=== PATIENT | female | born 1995 ===

== ENCOUNTER 2023-08-23 17:30 | Inpatient (IN) | payer OTHER ==
[2023-08-23] MEDS ORDERED: DEXTROSE 5%-LACTATED RINGERS 1,000 ML IV SCH (18:45)
[2023-08-23 18:59] VITALS: BMI 23.8
[2023-08-23 19:29] LABS: BASO % 0.4 % (0-2.0); EOS % 1.1 % (0-4.5); LYMPH % 18.3 % (8-40); MCHC 34.2 g/dl (32.0-36.0); MEAN CELL VOLUME 87.7 fl (80-96); MEAN PLT VOLUME 9.2 fl (7.5-11.1); MONO % 7.4 % (3.8-10.2); NEUT % 72.8 % (42.8-82.8); PLATELET COUNT 250 10^3/uL (134-434); RDW 14.1 % (11.6-15.6); WHITE BLOOD COUNT 10.4 K/mm3 (4.0-10.0)
[2023-08-23 19:35] LABS: INR 1.03 (0.83-1.09); PROTHROMBIN TIME (PATIENT) 11.9 SEC (9.7-13.0)
[2023-08-23 19:38] LABS: ACTIVATED PTT 29.1 SECONDS (25.2-36.5)
[2023-08-23 19:50] LABS: POTASSIUM 3.8 mmol/L (3.5-5.1)
[2023-08-23 19:52] LABS: ALBUMIN 2.8 g/dl (3.4-5.0); CALCIUM 9.1 mg/dL (8.5-10.1)
[2023-08-23 19:53] LABS: BLOOD UREA NITROGEN 9.6 mg/dL (7-18)
[2023-08-23 19:56] LABS: CREATININE 0.5 mg/dL (0.55-1.3)
[2023-08-23 19:57] LABS: BILIRUBIN,TOTAL 0.4 mg/dL (0.2-1); TOT PROT 7.1 g/dl (6.4-8.2)
[2023-08-23] MEDS: MISOPROSTOL 100 MCG TABLET PV SCH (20:25)
[2023-08-23 21:00] LABS: PH,URINE 5.5 (5.0-8.0); URINE APPEARANCE CLEAR; URINE BILIRUBIN NEGATIVE (NEGATIVE); URINE COLOR YELLOW; URINE GLUCOSE (UA) NEGATIVE (NEGATIVE); URINE KETONE NEGATIVE (NEGATIVE); URINE LEUK ESTERASE NEGATIVE (NEGATIVE); URINE NITRITE NEGATIVE (NEGATIVE); URINE PROTEIN NEGATIVE (NEGATIVE); URINE UROBILINOGEN 0.2 mg/dL (0.2-1.0)
[2023-08-23] MEDS ORDERED: morphine SULFATE 4 MG/ML VIAL IVPB ONE (23:53)
[2023-08-24] MEDS ORDERED: morphine SULFATE 4 MG/ML VIAL ONE (00:11)
[2023-08-24] MEDS: MISOPROSTOL 100 MCG TABLET PV SCH ×3 (02:14→07:16)
[2023-08-24] MEDS ORDERED: OXYTOCIN 20 UNITS in 0.9% NS 20 UNIT/1,000 ML INFUS.BAG IV ONE ×2 (02:27→12:54)
[2023-08-24] MEDS ORDERED: LIDOCAINE HCL 1% PRESERVATIVE FREE - 30ML VIAL ONE (02:28)
[2023-08-24] MEDS ORDERED: OXYTOCIN 30 UNITS in 0.9% NS 30 UNIT/500 ML INFUS.BAG IVPB SCH (04:00)
[2023-08-24 06:28] LABS: CORD BASE EXCESS -7.2 mmol/L (0-2); CORD HCO3 22.3 mmHg (20-29); CORD PCO2 60.8 mmHg (30-78); CORD pH 7.182 (7.14-7.44)
[2023-08-24 06:31] LABS: CORD BASE EXCESS -5.2 mmol/L (0-2); CORD HCO3 22.7 mmHg (20-29); CORD PCO2 52.4 mmHg (30-78); CORD pH 7.254 (7.14-7.44)
[2023-08-24] MEDS ORDERED: ACETAMINOPHEN 325 MG TABLET (FP) PO PRN (06:45)
[2023-08-24] MEDS ORDERED: WITCH HAZEL 50% (TUCKS) 40 PAD/JAR PAD TP PRN (06:45)
[2023-08-24] MEDS ORDERED: BENZOCAINE 28 GM HEMORRHOIDAL OINTMENT TP PRN (06:45)
[2023-08-24] MEDS ORDERED: OXYTOCIN 20 UNITS in 0.9% NS 20 UNIT/1,000 ML INFUS.BAG IV SCH (06:45)
[2023-08-24] MEDS: IBUPROFEN 600 MG TABLET (FP) PO PRN ×2 (07:52→20:23)
[2023-08-24] MEDS: FERROUS SO4 325 MG TABLET (FP) PO SCH ×3 (07:52→17:59)
[2023-08-24] MEDS ORDERED: FERROUS SO4 325 MG TABLET (FP) ONE (11:45)
[2023-08-24] MEDS ORDERED: PRENATAL VITAMINS W/ FOLIC ACID TABLET (FP) PO ONE (11:46)
[2023-08-24] MEDS: PRENATAL VITAMINS W/ FOLIC ACID TABLET (FP) PO SCH (11:48)
[2023-08-24 11:49] LABS: BASO % 0.1 % (0-2.0); HEMATOCRIT 25.1 % (32.4-45.2); HEMOGLOBIN 8.4 GM/dL (10.7-15.3); LYMPH % 7.7 % (8-40); MCH 29.5 pg (25.7-33.7); MCHC 33.4 g/dl (32.0-36.0); MEAN CELL VOLUME 88.3 fl (80-96); MEAN PLT VOLUME 8.8 fl (7.5-11.1); MONO % 6.6 % (3.8-10.2); NEUT % 85.6 % (42.8-82.8); PLATELET COUNT 253 10^3/uL (134-434); RBC 2.85 M/mm3 (3.60-5.2); WHITE BLOOD COUNT 19.4 K/mm3 (4.0-10.0)
[2023-08-24] MEDS: DOCUSATE SODIUM 100 MG CAPSULE (FP) PO SCH ×2 (15:51→21:11)
[2023-08-25] MEDS: DOCUSATE SODIUM 100 MG CAPSULE (FP) PO SCH ×3 (06:14→21:19)
[2023-08-25 08:34] LABS: BASO % 0.3 % (0-2.0); EOS % 1.1 % (0-4.5); LYMPH % 25.2 % (8-40); MCH 30.8 pg (25.7-33.7); MCHC 34.9 g/dl (32.0-36.0); MEAN CELL VOLUME 88.2 fl (80-96); MEAN PLT VOLUME 9.3 fl (7.5-11.1); MONO % 8.1 % (3.8-10.2); NEUT % 65.3 % (42.8-82.8); PLATELET COUNT 165 10^3/uL (134-434); RBC 1.92 M/mm3 (3.60-5.2); WHITE BLOOD COUNT 10.1 K/mm3 (4.0-10.0)
[2023-08-25 08:50] LABS: HEMOGLOBIN 5.9 GM/dL (10.7-15.3)
[2023-08-25] MEDS: FERROUS SO4 325 MG TABLET (FP) PO SCH ×3 (09:04→17:25)
[2023-08-25] MEDS: PRENATAL VITAMINS W/ FOLIC ACID TABLET (FP) PO SCH (09:04)
[2023-08-25] MEDS: IBUPROFEN 600 MG TABLET (FP) PO PRN ×3 (09:05→23:58)
[2023-08-25] MEDS ORDERED: SENNOSIDES/DOCUSATE COMBO (SENNA PLUS) TABLET (UD) PO PRN (22:00)
[2023-08-25 22:02] LABS: HEMOGLOBIN 7.1 GM/dL (10.7-15.3); MCH 30.1 pg (25.7-33.7); MCHC 34.1 g/dl (32.0-36.0); MEAN CELL VOLUME 88.3 fl (80-96); MEAN PLT VOLUME 8.8 fl (7.5-11.1); PLATELET COUNT 188 10^3/uL (134-434); RBC 2.36 M/mm3 (3.60-5.2); WHITE BLOOD COUNT 10.8 K/mm3 (4.0-10.0)
[2023-08-25 22:04] LABS: HEMATOCRIT 20.8 % (32.4-45.2)
[2023-08-26] MEDS: DOCUSATE SODIUM 100 MG CAPSULE (FP) PO SCH ×2 (06:20→13:53)
[2023-08-26 08:12] VITALS: RESP 16
[2023-08-26 08:14] VITALS: BP 104/77; PULSE 94; TEMP 98
[2023-08-26] MEDS: FERROUS SO4 325 MG TABLET (FP) PO SCH ×2 (08:40→12:19)
[2023-08-26 09:06] LABS: BASO % 0.4 % (0-2.0); EOS % 3.1 % (0-4.5); HEMATOCRIT 23.4 % (32.4-45.2); HEMOGLOBIN 7.8 GM/dL (10.7-15.3); LYMPH % 23.1 % (8-40); MCH 29.7 pg (25.7-33.7); MCHC 33.5 g/dl (32.0-36.0); MEAN CELL VOLUME 88.6 fl (80-96); MEAN PLT VOLUME 8.7 fl (7.5-11.1); MONO % 8.8 % (3.8-10.2); NEUT % 64.6 % (42.8-82.8); PLATELET COUNT 166 10^3/uL (134-434); RBC 2.64 M/mm3 (3.60-5.2); WHITE BLOOD COUNT 9.7 K/mm3 (4.0-10.0)
[2023-08-26] MEDS: PRENATAL VITAMINS W/ FOLIC ACID TABLET (FP) PO SCH (09:33)
[2023-08-26] MEDS: IBUPROFEN 600 MG TABLET (FP) PO PRN (12:20)
== END 2023-08-26 14:40 | disposition home or self-care (01) | DRG 560 ==
LOC: JLDR 17:30 → J3W 08-24 13:00
PROVIDERS: ADMIT Obstetrics & Gynecology Maternal & Fetal Medicine; ATTEND Obstetrics & Gynecology Maternal & Fetal Medicine
PROC: 10E0XZZ Delivery of Products of Conception, External Approach (ICD-10-PCS; principal; 2023-08-24)
PROC: 0KQM0ZZ Repair Perineum Muscle, Open Approach (ICD-10-PCS; 2023-08-24)
PROC: 30233N1 Transfusion of Nonautologous Red Blood Cells into Peripheral Vein, Percutaneous Approach (ICD-10-PCS; 2023-08-25)
DX: O13.4 Gestational [pregnancy-induced] hypertension without significant proteinuria, complicating childbirth (principal); O70.1 Second degree perineal laceration during delivery; O90.81 Anemia of the puerperium; Z3A.39 39 weeks gestation of pregnancy; Z37.0 Single live birth
CPT/HCPCS: 36415; 36430; 36600; 80053; 81003; 82803; 85025; 85027; 85610; 85730; 86850; 86900; 86901; 86922; P9038; P9058